=== PATIENT | female | born 2000 | race Two or more races ===

== ENCOUNTER 2019-06-07 11:20 | Emergency (ER) | payer SELFPAY ==
[~2019-06-07] VITALS: Ht 162.6 cm; Wt 61.2 kg
[2019-06-07 11:54] VITALS: BP 144/92
== END 2019-06-07 13:49 | disposition home or self-care (01) ==
LOC: ER 11:20
DX: S93.401A Sprain of unspecified ligament of right ankle, initial encounter (principal); X50.0XXA Overexertion from strenuous movement or load, initial encounter; Y93.89 Activity, other specified; Y99.8 Other external cause status; Y92.89 Other specified places as the place of occurrence of the external cause
CPT/HCPCS: 73600

== ENCOUNTER 2020-08-18 15:29 | Emergency (ER) | payer SELFPAY ==
[~2020-08-18] VITALS: Ht 162.6 cm; Wt 63.5 kg
[2020-08-18 15:30] VITALS: BP 152/96
[2020-08-18 15:48] LABS: Basophils # (auto) 0 10 ^3/uL (0-0.2); Basophils % (auto) 0.5 % (0.0-2.0); Eosinophils # (auto) 0.1 10 ^3/uL (0-0.8); Eosinophils % (auto) 1.5 % (0.0-7.0); Hematocrit 46.3 % (36.0-46.0); Hemoglobin 15.8 g/dL (12.2-16.2); Lymphocytes # (auto) 2.6 10 ^3/uL (0.4-5.4); Lymphocytes % (auto) 30.7 % (10.0-50.0); Mean Corpuscular Hemoglobin 31.7 pg (28.0-32.0); Mean Corpuscular Hgb Conc. 34.1 g/dL (32.0-36.0); Mean Corpuscular Volume 92.9 fL (80.0-100.0); Monocytes # (auto) 0.7 10 ^3/uL (0-1.3); Monocytes % (auto) 7.8 % (0.0-12.0); Neutrophils % (auto) 59.5 % (37.0-80.0); Platelet Count (auto) 263 10^3/uL (140-450); Red Blood Cells 4.98 10^6/uL (4.0-5.20); Red Cell Distribution Width 12.6 % (11.8-14.3); White Blood Cell 8.4 10^3/uL (4.4-10.8)
== END 2020-08-18 17:51 | disposition home or self-care (01) ==
LOC: ER 15:29
DX: O02.1 Missed abortion (principal)
CPT/HCPCS: 36415; 76801; 76817; 84702; 85025